=== PATIENT | male | born 1965 | race Caucasian/White ===

== ENCOUNTER 2017-05-01 09:47 | Emergency (ER) | payer OTHER ==
[~2017-05-01] VITALS: Ht 175.3 cm; Wt 74.8 kg
[~2017-05-01 09:47] MED LIST: BENADRYL25 MG ORAL; CYCLOBENZAPRINE10 MG ORAL; EPIPEN 2-P0.3 MG/0.3 IM; HYDROCORTISON28.4 G5 TOPIC; HYDROXYZINE HCL50 M1 PO; IBUPROFEN600 MG ORAL; IBUPROFEN600 MG PO; NKM; PREDNISONE20 MG ORAL; RANITIDINE HCL150 MG ORAL
[2017-05-01] MEDS ORDERED: cholesterol pill (10:01)
[2017-05-01] MEDS ORDERED: [UNRECOGNIZED DRUG - REMARK] (10:01)
--- NOTE | 2017-05-01 10:29 | Emergency Room Report ---
History of Present Illness General Chief Complaint: Lower Extremity Injury Source: Patient Present Illness [facility] This patient has 2 separate complaints. He states that about a week and half ago he pulled his groin muscle playing with his son. He states that it had improved but then he pulled it again swimming in the ocean. He states that the other night he then tripped and pulled his quadricep muscle. He states that sometimes it is okay but if he gets in certain positions he will have pain. He his back pain or injury. He denies weakness. He denies tingling or numbness. He states that it is very painful to extend his leg. He denies loss of bowel or bladder control. He denies fever or chills. He has had a sore throat for the past few days. He denies difficulty swallowing. He also has some congestion. He has no other complaints. Allergies: Coded Allergies: Kiwi (Verified Allergy, Intermediate, 01/11/13) MORPHINE (Verified Allergy, Intermediate, 02/10/13) Patient History Past Medical History: GERD, other - HLP Social History: Reports: alcohol use, smoking, Denies: drug use Reviewed Nursing Documentation: PMH: Agreed, PSxH: Agreed Nursing Documentation-PMH Hx Cardiac Problems: Yes - HIGH CHOLESTEROL Hx Gastrointestinal Problems: Yes - "Stomach ulcer" Review of Systems All Other Systems: negative except mentioned in HPI Physical Exam Vital Signs Date Time Temp Pulse Resp B/P Pulse Ox O2 Delivery O2 Flow Rate FiO2 05/01/17 09:56 97.9 61 18 126/74 98 Room Air Sp02 EP Interpretation: reviewed, normal General Appearance: no apparent distress, alert, GCS 15, non-toxic Head: normocephalic, atraumatic Eyes: bilateral eye PERRL, bilateral eye normal inspection ENT: hearing grossly normal, normal pharynx, no angioedema, normal voice, TMs + canals normal, uvula midline, moist mucus membranes, nasal congestion Neck: full range of motion, supple/symm/no masses Respiratory: no respiratory distress, no retraction, no accessory muscle use, speaking full sentences Rectal: deferred Musculoskeletal: back normal, normal range of motion, other - Antalgic gait. Tender to palpation along the anterior quadriceps muscle. No mass or ecchymoses. 5 out of 5 muscle strength. Extensor mechanism intact. Neurologic: alert, oriented x3, responsive, motor strength/tone normal, sensory intact, speech normal Psychiatric: judgement/insight normal, memory normal, mood/affect normal, no suicidal/homicidal ideation Skin: normal color, no rash, warm/dry, well hydrated Medical Decision Making Diagnostic Impression: Primary Impression: Quadriceps muscle strain Additional Impression: Pharyngitis ER Course This patient has a clinical presentation consistent with muscle strain. There are no red flags on physical exam or history that would make me concerned for underlying fracture. Therefore, I do not feel that I need to obtain imaging studies. The patient has pain with range of motion and has tenderness to palpation along the muscle. There is no evidence of compartment syndrome. There is no neurologic deficit. The patient was instructed on supportive home measures. No emergency medical condition was identified. The patient was given return precautions and followup instructions. This patient has a clinical presentation consistent with pharyngitis. Physical exam is consistent with a viral etiology. There is no evidence of peritonsillar abscess or deep neck abscess. There is no airway edema. Overall , this patient had a very benign examination. The patient only needs supportive care. The patient is instructed to get [id number] lozenges. I will also give the patient Motrin as a pain medication and anti-inflammatory. The patient was given return precautions and followup instructions. Last Vital Signs Date Time Temp Pulse Resp B/P Pulse Ox O2 Delivery O2 Flow Rate FiO2 05/01/17 09:56 97.9 61 18 126/74 98 Room Air Disposition: HOME, SELF-CARE Condition: Improved KAR CONDE D.O. May 01, 2017 10:29
[2017-05-01 10:48] VITALS: BP 126/74
== END 2017-05-01 10:49 | disposition home or self-care (01) ==
LOC: EMR 10:28
DX: S76.111A Strain of right quadriceps muscle, fascia and tendon, initial encounter (principal); X50.9XXA Other and unspecified overexertion or strenuous movements or postures, initial encounter; Y93.11 Activity, swimming; Y92.832 Beach as the place of occurrence of the external cause; J02.9 Acute pharyngitis, unspecified; K21.9 Gastro-esophageal reflux disease without esophagitis; Z88.6 Allergy status to analgesic agent
CPT/HCPCS: 99282

== ENCOUNTER 2019-06-26 06:56 | Emergency (ER) | payer OTHER ==
[~2019-06-26] VITALS: Ht 175.3 cm; Wt 70.3 kg
[~2019-06-26 06:56] MED LIST changes: +[UNRECOGNIZED DRUG - REMARK]; +cholesterol pill
[2019-06-26 06:59] VITALS: BP 146/72
[2019-06-26] MEDS ORDERED: NKM (07:02)
--- NOTE | 2019-06-26 07:04 | NUR ---
ED Nurse Note: PT. AAOX4. AMBULATORY. WALKED IN TO ER. PER PT. HE STARTED HAVING R-SIDED JAW PAIN SINCE YESTERDAY BUT DENIES ANY RECENT INJURY OR TRAUMA. DENIES HAVING ANY DRAINAGE ON THE AFFECTED SITE. NO FEVER NOTED DURING TRIAGE. NO ACUTE S/S OF DISTRESS NOTED AT THIS TIME
--- NOTE | 2019-06-26 07:13 | Emergency Room Report ---
History of Present Illness General Chief Complaint: Pain Source: Patient Present Illness HPI Patient is a 54-year-old male who presents after increased right lower jaw discomfort. Patient denies any recent trauma. He reports having some swelling to the gums. He reports having previously told that he needed a root canal. He has been using Orajel without any improvement. Is concerned that this may be infected. He denies any difficulty with opening his mouth. Gradual onset of severe pain to the lower right Allergies: Coded Allergies: Kiwi (Verified Allergy, Intermediate, 01/11/13) MORPHINE (Verified Allergy, Intermediate, 02/10/13) Patient History Past Medical History: see triage record Social History: Reports: smoking Reviewed Nursing Documentation: PMH: Agreed; PSxH: Agreed Nursing Documentation-PMH Hx Cardiac Problems: Yes - HIGH CHOLESTEROL Hx Gastrointestinal Problems: Yes - "Stomach ulcer" Review of Systems All Other Systems: negative except mentioned in HPI Physical Exam Vital Signs Date Time Temp Pulse Resp B/P (MAP) Pulse Ox O2 Delivery O2 Flow Rate FiO2 06/26/19 06:59 98.1 57 18 146/72 (96) 97 Room Air General Appearance: well appearing, no apparent distress, alert, GCS 15 Head: normocephalic, atraumatic ENT: hearing grossly normal, normal voice, other - slight gingival swelling Neck: full range of motion, supple Respiratory: no respiratory distress, speaking full sentences Cardiovascular #1: normal peripheral pulses, regular rate, rhythm, no edema, no gallop Gastrointestinal: normal inspection Musculoskeletal: normal inspection, no calf tenderness Neurologic: normal inspection, alert, oriented x3, responsive, normal gait Psychiatric: mood/affect normal Skin: no rash Medical Decision Making Diagnostic Impression: Primary Impression: Pain, dental Additional Impression: Acute gingival inflammation ER Course Patient presented for right-sided dental pain. Differential diagnosis include was not limited to abscess, dental caries, dry socket, vascular compromise among others. Patient has a benign exam and does not appear to require any imaging or laboratory testing at this time. Patient appears to have a dental infection to the right lower premolars. Patient was noted to have some slight soft tissue swelling without any evidence of submandibular abscess or any trismus. Patient appears to be stable for outpatient dental follow-up. Patient was advised to follow-up with a dentist as soon as possible. He was given prescription for pain medication as well as antibiotics. He was advised to return if he began having worsening swelling or other concerns. Last Vital Signs Date Time Temp Pulse Resp B/P (MAP) Pulse Ox O2 Delivery O2 Flow Rate FiO2 06/26/19 06:59 98.1 57 18 146/72 97 Room Air Status: improved Disposition: HOME, SELF-CARE Condition: Stable Scripts Penicillin V Potassium* (PENVK*) 500 Mg Tablet 500 MG ORAL FOUR TIMES A DAY, #28 TAB Prov: Gabino Garcia MD 06/26/19 Ibuprofen* (MOTRIN*) 600 Mg Tablet 600 MG ORAL Q8H PRN for For Pain, #30 TAB 0 Refills Prov: Gabino Garcia MD 06/26/19 Acetaminophen (PAIN RELIEVER) 500 Mg Tablet 500 MG PO EVERY 6 HOURS for pain, #20 TAB Prov: Gabino Garcia MD 06/26/19 Gabino Garcia MD Jun 26, 2019 07:13
[2019-06-26] MEDS ORDERED: Acetaminophen 500mg (ES) tab ORAL ONE (07:15)
[2019-06-26] MEDS ORDERED: PAIN RELIEVER500 M1 PO (07:16)
[2019-06-26] MEDS ORDERED: IBUPROFEN600 MG ORAL (07:16)
[2019-06-26] MEDS ORDERED: PENICILLIN V P500 MG ORAL (07:16)
[2019-06-26] MEDS ORDERED: Lidocaine 2% Visc 15ml soln ORAL ONE (07:30)
[2019-06-26 07:35] VITALS: BP 146/72
--- NOTE | 2019-06-26 07:35 | NUR ---
ER DISCHARGE NOTE: Patient is cleared to be discharged per ERMD DR CH, pt is aox4, on room air, with stable vital signs. pt was given dc and prescription instructions, pt was able to verbalize understanding, pt id band removed without complications. pt is able to ambulate with steady gait. pt took all belongings.
== END 2019-06-26 07:35 | disposition home or self-care (01) ==
LOC: EMR 07:15
DX: K05.10 Chronic gingivitis, plaque induced (principal); K08.89 Other specified disorders of teeth and supporting structures; E78.00 Pure hypercholesterolemia, unspecified; Z87.11 Personal history of peptic ulcer disease; F17.200 Nicotine dependence, unspecified, uncomplicated; Z88.6 Allergy status to analgesic agent; Z91.018 Allergy to other foods
CPT/HCPCS: 99282

== ENCOUNTER 2020-04-03 04:58 | Emergency (ER) | payer OTHER ==
[~2020-04-03] VITALS: Ht 175.3 cm; Wt 74.8 kg
[~2020-04-03 04:58] MED LIST changes: +PAIN RELIEVER500 M1 PO; +PENICILLIN V P500 MG ORAL
--- NOTE | 2020-04-03 05:07 | NUR ---
ED Nurse Note: Patient walked into ED from home d/t hearing loss in his left ear that started 2 days ago. Denies tinnitus, discharge, pain. Patient aao x 4 and ambulatory with steady gait. Patient stable upon assessment.
[2020-04-03 05:08] VITALS: BP 139/89
[2020-04-03] MEDS ORDERED: PSEUDOEPHEDRINE60 MG PO (05:16)
[2020-04-03] MEDS ORDERED: AUGMENTIN 875-1 EAC1 ORAL (05:16)
--- NOTE | 2020-04-03 05:17 | Emergency Room Report ---
History of Present Illness General Chief Complaint: Earache Source: Patient Present Illness [facility] This is a 54-year-old male with no past medical history. He presents with complaint of left ear fullness. Ongoing for last couple days. He said he can hear out of that ear. He felt there is swishing sensation in his ear. No fever chills but no nausea no vomiting. He is congested. Using over-the- counter medication is not helping. No pain. 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 Patient History Past Medical History: none, see triage record, old chart reviewed Past Surgical History: none Pertinent Family History: none Social History: Denies: smoking Immunizations: other Reviewed Nursing Documentation: PMH: Agreed; PSxH: Agreed Nursing Documentation-PMH Past Medical History: No History, Except For Hx Cardiac Problems: Yes - HIGH CHOLESTEROL Hx Gastrointestinal Problems: Yes - "Stomach ulcer" Review of Systems Eye: Denies: eye pain, blurred vision ENT: Reports: nose congestion; Denies: ear pain, throat swelling Respiratory: Denies: cough, shortness of breath Cardiovascular: Denies: chest pain, palpitations Gastrointestinal: Denies: abdominal pain, diarrhea, nausea, vomiting Musculoskeletal: Denies: back pain, joint pain Skin: Denies: rash Neurological: Denies: headache, numbness Endocrine: Denies: increased thirst, increased urine Hematologic/Lymphatic: Denies: easy bruising All Other Systems: negative except mentioned in HPI Physical Exam Vital Signs Date Time Temp Pulse Resp B/P (MAP) Pulse Ox O2 Delivery O2 Flow Rate FiO2 04/03/20 05:01 97.9 52 18 143/99 (114) 97 Room Air Vitals unremarkable Sp02 EP Interpretation: reviewed, normal General Appearance: well appearing, no apparent distress, alert Head: normocephalic, atraumatic Eyes: bilateral eye PERRL, bilateral eye EOMI ENT: hearing grossly normal, normal pharynx, other - Left ear: TM is full with effusion. Is bulging. No redness. No foreign body. Neck: full range of motion, supple, no meningismus Respiratory: chest non-tender, lungs clear, normal breath sounds Cardiovascular #1: regular rate, rhythm, no murmur Gastrointestinal: normal bowel sounds, non tender, no mass, no organomegaly, no bruit, non-distended Musculoskeletal: back normal, normal range of motion, gait/station normal Psychiatric: mood/affect normal Medical Decision Making Diagnostic Impression: Primary Impression: Left otitis media with effusion ER Course Patient with an otitis media with effusion. No evidence of perforation. No foreign body. Last Vital Signs Date Time Temp Pulse Resp B/P (MAP) Pulse Ox O2 Delivery O2 Flow Rate FiO2 04/03/20 05:08 97.9 78 18 139/89 98 Room Air Status: unchanged Disposition: HOME, SELF-CARE Condition: Stable Scripts Pseudoephedrine Hcl* (SUDAFED*) 60 Mg Tablet 60 MG PO Q6H, #30 TAB Prov: Harry Camejo MD 04/03/20 Amoxicillin/Potassium Clav 875-125* (AUGMENTIN 875-125 TABLET*) 1 Each Tablet 1 TAB ORAL TWICE A DAY, #14 TAB Prov: Harry Camejo MD 04/03/20 Patient Instructions: Otitis Media With Effusion Additional Instructions: Follow-up with your doctor in 7 days. Return if symptoms worsen. Harry Camejo MD Apr 03, 2020 05:16
[2020-04-03 05:20] VITALS: BP 132/85
--- NOTE | 2020-04-03 05:20 | NUR ---
ER DISCHARGE NOTE: Patient is cleared to be discharged per ERMD, pt is aox4, on room air, with stable vital signs. pt was given dc and prescription instructions, pt was able to verbalize understanding, pt id band removed. pt is able to ambulate with steady gait. pt took all belongings. pt stable upon discharge.
== END 2020-04-03 05:20 | disposition home or self-care (01) ==
LOC: EMR 05:12
DX: H65.92 Unspecified nonsuppurative otitis media, left ear (principal); Z88.6 Allergy status to analgesic agent; E78.00 Pure hypercholesterolemia, unspecified
CPT/HCPCS: 99282

== ENCOUNTER 2020-08-30 17:14 | Emergency (ER) | payer OTHER ==
[~2020-08-30] VITALS: Ht 175.3 cm; Wt 74.8 kg
[~2020-08-30 17:14] MED LIST changes: +AUGMENTIN 875-1 EAC1 ORAL; +PSEUDOEPHEDRINE60 MG PO
--- NOTE | 2020-08-30 17:44 | Emergency Room Report ---
History of Present Illness General Chief Complaint: General Complaint Source: Patient Present Illness HPI 55-year-old male with no signal past medical history here requesting to be tested for HIV and received Pap treatment. Patient reports that was sexually active with a new partner who is positive for HIV 3 nights ago. Reports that partner takes medication for HIV. Condom was used however broke during sexual encounter. Denies any penile discharge urgency. Denies other medical condition. 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 Patient History Past Medical History: see triage record Past Surgical History: none Pertinent Family History: none Immunizations: UTD Reviewed Nursing Documentation: PMH: Agreed; PSxH: Agreed Nursing Documentation-PMH Past Medical History: No Stated History Hx Cardiac Problems: Yes - HIGH CHOLESTEROL Hx Gastrointestinal Problems: Yes - "Stomach ulcer" Review of Systems All Other Systems: negative except mentioned in HPI Physical Exam Vital Signs Date Time Temp Pulse Resp B/P (MAP) Pulse Ox O2 Delivery O2 Flow Rate FiO2 08/30/20 17:23 98.1 81 16 151/87 (108) 97 Room Air Sp02 EP Interpretation: reviewed, normal General Appearance: no apparent distress, alert, GCS 15, non-toxic Head: normocephalic, atraumatic Eyes: bilateral eye normal inspection, bilateral eye PERRL ENT: hearing grossly normal, normal pharynx, no angioedema, normal voice Neck: full range of motion, supple/symm/no masses Respiratory: no respiratory distress, no retraction Cardiovascular #1: no edema Gastrointestinal: no mass Genitourinary: no CVA tenderness Musculoskeletal: back normal Neurologic: alert, motor strength/tone normal, oriented x3, sensory intact, responsive, speech normal Psychiatric: judgement/insight normal, memory normal, mood/affect normal, no suicidal/homicidal ideation Skin: no rash Lymphatic: no adenopathy Medical Decision Making PA Attestation All my diagnosis and treatment plans were reviewed ad discussed with my supervising physician Dr. Ignacio Diagnostic Impression: Primary Impression: HIV exposure ER Course 55-year-old male with no signal past medical history here requesting to be tested for HIV and received Pap treatment. Patient reports that was sexually active with a new partner who is positive for HIV 3 nights ago. Reports that partner takes medication for HIV. Condom was used however broke during sexual encounter. Denies any penile discharge urgency. Denies other medical condition. Ddx considered but are not limited to: chlamydia, Gonorrhea, syphilis, HIV, herpes 1 or 2 Vital signs: are WNL, pt. is afebrile H&PE are most consistent with : HIV exposure ORDERS: Rapid HIV test, Truvada, raltegravir ED INTERVENTIONS: None required at this time. DISCHARGE: At this time pt. is stable for d/c to home. Will provide printed patient care instructions, and any necessary prescriptions. Care plan and follow up instructions have been discussed with the patient prior to discharge. Given list of STD clinics for patient to follow-up with and get tested, also around 1 month supply of Pap treatment advised patient to be retested in 1 month. Last Vital Signs Date Time Temp Pulse Resp B/P (MAP) Pulse Ox O2 Delivery O2 Flow Rate FiO2 08/30/20 17:23 98.1 81 16 151/87 (108) 97 Room Air Disposition: HOME, SELF-CARE Condition: Stable Scripts Raltegravir (Isentress) 400 Mg Tablet 400 MG ORAL EVERY 12 HOURS for 28 Days, #56 TAB Prov: Sharifa Nye 08/30/20 Emtricitabine/Tenofovir 200-300MG* (TRUVADA 200-300MG*) 1 Each Tablet 1 TAB ORAL DAILY for 28 Days, #28 TAB Prov: Sharifa Nye 08/30/20 Patient Instructions: HIV Infection and AIDS Additional Instructions: Take medication as directed, follow-up with a list of the clinics that I have included in your aftercare instruction for further evaluation and testing if wor sening symptoms return to the emergency room Sharifa Nye Aug 30, 2020 17:44
[2020-08-30] MEDS ORDERED: TRUVADA 200 MG1 EAC1 ORAL (17:51)
[2020-08-30] MEDS ORDERED: ISENTRESS400 MG ORAL (17:51)
--- NOTE | 2020-08-30 18:00 | NUR ---
ED Nurse Note:blood sent to labs
--- NOTE | 2020-08-30 18:50 | NUR ---
ED Nurse Note: Pt cleared by health care Provider for discharge. DC instructions/prescription was given and explained to pt and verbalized understanding of teachings. All medical deviecs such as ID band removed. Pt is AAO x4, ambulatory and left with all personal belongings.
[2020-08-30 19:24] VITALS: BP 151/87
== END 2020-08-30 18:50 | disposition home or self-care (01) ==
LOC: EMR 18:01
DX: Z20.6 Contact with and (suspected) exposure to human immunodeficiency virus [HIV] (principal); E78.00 Pure hypercholesterolemia, unspecified; Z88.6 Allergy status to analgesic agent; Z91.018 Allergy to other foods
CPT/HCPCS: 86703; Z7502; 99283